=== PATIENT | female | born 1950 | race Caucasian/White ===

== ENCOUNTER 2017-04-18 16:23 | Inpatient (IN) | payer OTHER ==
[~2017-04-18] VITALS: Ht 152.4 cm; Wt 103.9 kg
[~2017-04-18 16:23] MED LIST: ACETAMINOPHEN-1 EAC1 PO; ADVAIR 100/501 DISK IH; ALBUTEROL SULF8.5 GM IH; ANTI-DIARRHEAL2 M2 PO; ASPIR 8181 M1 PO; Advair 100/50 Diskus IH; CALCIUM 500 +1 EACH PO; CALCIUM 600 +1 EAC2 PO; CEFPODOXIME PR200 MG PO; DYAZIDE, MA1 CAPSULE PO; ESCITALOPRAM OX10 MG PO; Ecotrin PO; FISH OIL 1,0001 EAC7 PO; FLONASE16 G1 BOTH NARES; FLUCONAZOLE100 MG PO; Flonase BOTH NARES; GAS X; GAS-X125 MG PO; GAS-X80 MG PO; Halfprin PO; IMODIUM A-1 MG/7.5 M PO; IMODIUM MS REL1 EACH PO; KLOR-CON 1010 ME1 PO; KLOR-CON M1010 MEQ PO; LEVAQUIN750 MG PO; LEVOTHYROXINE75 MCG PO; LEVOTHYROXINE88 MCG PO; Levothroid,Synthroid PO; Lomotil,Lonox PO; MOBIC15 MG PO; MULTIPLE VITAM1 EAC4 PO; MYCOSTATIN 100,60 ML PO; Mobic PO; Mycostatin PO; OSTEO BI-FLEX1 EAC3 PO; PROMETHAZINE HC25 M1 PO; Proventil,Ventolin H IH; Rocephin IV; SYNTHROID100 MCG PO; SYNTHROID88 MCG PO; TENORMIN50 MG PO; TOPAMAX100 MG PO; TOPAMAX50 MG PO; TOPIRAMATE100 MG PO; TOPIRAMATE50 MG PO; TYLENOL ARTHRI650 M2 PO; TYLENOL ARTHRI650 MG PO; Tenormin PO; ULTRAM50 MG PO; VITAMIN C1000 MG PO; WELLBUTRIN SR100 MG PO; WELLBUTRIN100 MG PO; Wellbutrin PO; XARELTO1 EACH PO; XARELTO15 MG PO; ZITHROMAX Z-PA250 MG PO; ZOFRAN8 MG PO; predniSONE PO
[2017-04-18 17:54] LABS: HEMATOCRIT 42.6 % (36.0-46.0); MCH 32.7 PG (29.0-34.0); MCHC 32.9 G/DL (30.0-36.0); MCV 99.5 FL (83-99); MEAN PLAT.VOLUME 9.7 uM^3 (9.5-12.4); PLATELET COUNT 207 K/uL (156-360); RBC DIS.WIDTH-CV 12.8 % (11.8-14.6); RBC DIS.WIDTH-SD 46.5 % (39-53); RED BLOOD COUNT 4.28 M/uL (3.80-5.20); WHITE BLOOD COUNT 20.8 K/uL (4.1-10.2)
[2017-04-18 18:25] LABS: CHLORIDE 105 mEq/L (99-109); POTASSIUM 4.5 mEq/L (3.7-5.4); SODIUM 138 mEq/L (136-147)
[2017-04-18 18:27] LABS: GLUCOSE 117 mg/dL (70-99)
[2017-04-18 18:28] LABS: ANION GAP 8 MEQ/L (2-14)
[2017-04-18 18:29] LABS: TOTAL BILIRUBIN 0.6 mg/dL (0.0-1.0)
[2017-04-18 18:31] LABS: ALKALINE PHOSPHATASE 73 IU/L (3-129); GFR ESTIMATE (CALCULATED) 34 mL/min/
[2017-04-18 18:32] LABS: UREA NITROGEN (BUN) 19 mg/dL (9-23)
[2017-04-18 19:00] LABS: ABS NEUTROPHIL COUNT 19.1; ANISOCYTOSIS 1+; BAND NEUTROPHILS 18.5 % (0-8.0); BASOPHILS 0.5 %; EOSINOPHIL ABS CT 0; INSTRUMENT ABS NEUTROPHIL CT 19.2 K/uL; LYMPHOCYTES 6.5 % (15.0-45.0); METAMYELOCYTES 0.5 %; PLAT.SUFFICIENCY ADEQUATE; SEG.NEUTROPHILS 73.5 % (46.0-76.0)
[2017-04-18] MEDS ORDERED: XARELTO20 MG PO (21:05)
[2017-04-18] MEDS ORDERED: RANITIDINE HCL150 MG PO (21:10)
[2017-04-18] MEDS ORDERED: VITAMIN D2000 UNI1 PO (21:10)
[2017-04-18] MEDS ORDERED: TYLENOL ARTHRI650 MG PO (21:10)
[2017-04-19 01:16] VITALS: BP 120/58
[2017-04-19 03:28] VITALS: BP 100/56
[2017-04-19 07:25] LABS: HEMATOCRIT 39.3 % (36.0-46.0); MCH 33.5 PG (29.0-34.0); MCHC 33.3 G/DL (30.0-36.0); MCV 100.5 FL (83-99); PLATELET COUNT 191 K/uL (156-360); RBC DIS.WIDTH-CV 13.1 % (11.8-14.6); RBC DIS.WIDTH-SD 48.4 % (39-53); RED BLOOD COUNT 3.91 M/uL (3.80-5.20); WHITE BLOOD COUNT 22.7 K/uL (4.1-10.2)
[2017-04-19 08:04] LABS: ANION GAP 12 MEQ/L (2-14); CHLORIDE 108 MEQ/L (99-109); GFR ESTIMATE (CALCULATED) 40 mL/min/; GLUCOSE 140 mg/dL (70-99); POTASSIUM 3.8 MEQ/L (3.7-5.4); SAMPLE HEMOLYSIS CHECK 0; SAMPLE ICTERIC CHECK 0; SAMPLE LIPEMIA CHECK 0; SODIUM 141 MEQ/L (136-147); UREA NITROGEN (BUN) 18 mg/dL (9-23)
[2017-04-19 11:40] VITALS: BP 92/55
[2017-04-19 18:20] VITALS: BP 117/60
[2017-04-19 19:59] VITALS: BP 112/62
[2017-04-19 23:44] VITALS: BP 114/56
[2017-04-20 03:19] VITALS: BP 120/60
[2017-04-20 08:19] VITALS: BP 96/52
[2017-04-20 15:27] VITALS: BP 109/55
[2017-04-20 19:58] VITALS: BP 109/64
[2017-04-20 23:24] VITALS: BP 120/56
[2017-04-21 03:20] VITALS: BP 118/61
[2017-04-21 07:40] LABS: HEMATOCRIT 32.2 % (36.0-46.0); MCH 32.3 PG (29.0-34.0); MCV 100.9 FL (83-99); MEAN PLAT.VOLUME 10.4 uM^3 (9.5-12.4); PLATELET COUNT 155 K/uL (156-360); RBC DIS.WIDTH-CV 13.2 % (11.8-14.6); RBC DIS.WIDTH-SD 49.1 % (39-53); RED BLOOD COUNT 3.19 M/uL (3.80-5.20); WHITE BLOOD COUNT 15.9 K/uL (4.1-10.2)
[2017-04-21 07:45] LABS: ALKALINE PHOSPHATASE 60 IU/L (3-129); ANION GAP 10 MEQ/L (2-14); CHLORIDE 105 MEQ/L (99-109); GFR ESTIMATE (CALCULATED) 48 mL/min/; POTASSIUM 3.7 MEQ/L (3.7-5.4); SAMPLE HEMOLYSIS CHECK 0; SAMPLE ICTERIC CHECK 0; SAMPLE LIPEMIA CHECK 0; SODIUM 137 MEQ/L (136-147); TOTAL BILIRUBIN 1.4 MG/DL (0.0-1.0); UREA NITROGEN (BUN) 14 mg/dL (9-23)
[2017-04-21 07:47] LABS: GLUCOSE 89 mg/dL (70-99)
[2017-04-21 08:06] VITALS: BP 111/57
[2017-04-21 11:49] VITALS: BP 103/59
[2017-04-21 15:56] VITALS: BP 104/63
[2017-04-21 20:16] LABS: C DIFF TOXIN NEGATIVE (NEGATIVE)
[2017-04-21 21:21] LABS: PROBE CHECK PASS; SPECIMEN PROCESSING CONTROL PASS
[2017-04-21 23:42] VITALS: BP 127/64
[2017-04-22 08:38] VITALS: BP 126/72
[2017-04-22 12:42] LABS: CHLORIDE 107 mEq/L (99-109); POTASSIUM 3.4 mEq/L (3.7-5.4); SODIUM 137 mEq/L (136-147)
[2017-04-22 12:45] LABS: GLUCOSE 104 mg/dL (70-99)
[2017-04-22 12:46] LABS: ANION GAP 8 MEQ/L (2-14)
[2017-04-22 12:48] LABS: ALKALINE PHOSPHATASE 62 IU/L (3-129); GFR ESTIMATE (CALCULATED) 48 mL/min/
[2017-04-22 12:49] LABS: HEMATOCRIT 34.4 % (36.0-46.0); MCH 32.4 PG (29.0-34.0); MCHC 33.1 G/DL (30.0-36.0); MCV 97.7 FL (83-99); MEAN PLAT.VOLUME 10.3 uM^3 (9.5-12.4); RED BLOOD COUNT 3.52 M/uL (3.80-5.20); UREA NITROGEN (BUN) 11 mg/dL (9-23); WHITE BLOOD COUNT 14.1 K/uL (4.1-10.2)
[2017-04-22 12:50] LABS: PLATELET COUNT 211 K/uL (156-360)
[2017-04-22 16:15] VITALS: BP 143/62
[2017-04-22 19:59] VITALS: BP 126/58
[2017-04-23 00:03] VITALS: BP 117/58
[2017-04-23 03:57] VITALS: BP 129/70
[2017-04-23 08:00] VITALS: BP 128/71
[2017-04-23 12:00] VITALS: BP 124/59
[2017-04-23 21:00] VITALS: BP 131/64
[2017-04-23 23:55] VITALS: BP 126/60
[2017-04-24 03:40] VITALS: BP 108/55
[2017-04-24 07:40] VITALS: BP 128/60
[2017-04-24 11:30] VITALS: BP 136/66
[2017-04-24 16:50] VITALS: BP 126/58
[2017-04-24 19:00] VITALS: BP 116/56
[2017-04-24 23:00] VITALS: BP 100/55
[2017-04-25 03:30] VITALS: BP 102/54
[2017-04-25 08:27] VITALS: BP 106/53
[2017-04-25 12:33] VITALS: BP 126/61
[2017-04-25 12:54] LABS: ALKALINE PHOSPHATASE 51 IU/L (3-129); ANION GAP 11 MEQ/L (2-14); CHLORIDE 112 MEQ/L (99-109); GFR ESTIMATE (CALCULATED) 59 mL/min/; GLUCOSE 83 mg/dL (70-99); MAGNESIUM 1.8 mg/dl (1.3-2.7); POTASSIUM 3.2 MEQ/L (3.7-5.4); SAMPLE HEMOLYSIS CHECK 0; SAMPLE ICTERIC CHECK 0; SAMPLE LIPEMIA CHECK 0; UREA NITROGEN (BUN) 14 mg/dL (9-23)
[2017-04-25 12:55] LABS: SODIUM 148 MEQ/L (136-147); TOTAL BILIRUBIN 0.6 MG/DL (0.0-1.0)
[2017-04-25 13:14] LABS: ABS NEUTROPHIL COUNT 11.7; ANISOCYTOSIS 1+; ATYPICAL LYMPHOCYTE 0.9 %; EOSINOPHIL ABS CT 0.2; EOSINOPHILS 1.8 % (0-5.0); HEMATOCRIT 29.4 % (36.0-46.0); INSTRUMENT ABS NEUTROPHIL CT 9.1 K/uL; LYMPHOCYTES 4.4 % (15.0-45.0); MACROCYTES 1+; MCH 32.9 PG (29.0-34.0); MCHC 32.3 G/DL (30.0-36.0); MEAN PLAT.VOLUME 10.3 uM^3 (9.5-12.4); MYELOCYTES 2.6 %; PLAT.SUFFICIENCY ADEQUATE; PLATELET COUNT 205 K/uL (156-360); RBC DIS.WIDTH-CV 13.8 % (11.8-14.6); RBC DIS.WIDTH-SD 51.5 % (39-53); RED BLOOD COUNT 2.89 M/uL (3.80-5.20); SEG.NEUTROPHILS 87.7 % (46.0-76.0); SMUDGE CELLS 9.6; WHITE BLOOD COUNT 13.3 K/uL (4.1-10.2)
[2017-04-25 13:25] LABS: MCV 101.7 FL (83-99)
[2017-04-25 15:24] VITALS: BP 128/69
[2017-04-25 20:00] VITALS: BP 140/78
[2017-04-25 23:55] VITALS: BP 109/56
[2017-04-26 04:00] VITALS: BP 110/52
[2017-04-26 08:16] VITALS: BP 117/60
[2017-04-26 10:34] LABS: HEMATOCRIT 29.4 % (36.0-46.0); MCH 32.5 PG (29.0-34.0); MCV 101.7 FL (83-99); PLATELET COUNT 213 K/uL (156-360); RBC DIS.WIDTH-CV 13.8 % (11.8-14.6); RBC DIS.WIDTH-SD 51.1 % (39-53); RED BLOOD COUNT 2.89 M/uL (3.80-5.20); WHITE BLOOD COUNT 13.4 K/uL (4.1-10.2)
[2017-04-26 10:57] LABS: ALKALINE PHOSPHATASE 49 IU/L (3-129); ANION GAP 7 MEQ/L (2-14); CHLORIDE 111 MEQ/L (99-109); GFR ESTIMATE (CALCULATED) 59 mL/min/; MAGNESIUM 1.7 mg/dl (1.3-2.7); POTASSIUM 3.1 MEQ/L (3.7-5.4); SAMPLE HEMOLYSIS CHECK 0; SAMPLE ICTERIC CHECK 0; SAMPLE LIPEMIA CHECK 0; SODIUM 149 MEQ/L (136-147); TOTAL BILIRUBIN 0.7 MG/DL (0.0-1.0); UREA NITROGEN (BUN) 9 mg/dL (9-23)
[2017-04-26 10:58] LABS: GLUCOSE 164 mg/dL (70-99)
[2017-04-26 11:38] LABS: ABS NEUTROPHIL COUNT 11.4; ANISOCYTOSIS 1+; BAND NEUTROPHILS 3.5 % (0-8.0); EOSINOPHIL ABS CT 0.5; EOSINOPHILS 3.5 % (0-5.0); INSTRUMENT ABS NEUTROPHIL CT 9.8 K/uL; LYMPHOCYTES 6.1 % (15.0-45.0); MACROCYTES 1+; MYELOCYTES 1.7 %; PLAT.SUFFICIENCY ADEQUATE; SEG.NEUTROPHILS 81.7 % (46.0-76.0)
[2017-04-26 11:54] VITALS: BP 115/60
[2017-04-26 16:58] VITALS: BP 134/60
[2017-04-26 20:45] VITALS: BP 135/64
[2017-04-27 00:38] VITALS: BP 100/53
[2017-04-27 04:41] VITALS: BP 128/57
[2017-04-27 06:33] LABS: EOSINOPHIL (%) 1.8 % (0-5); EOSINOPHIL COUNT 0.3 K/uL (0-0.3); HEMATOCRIT 28.6 % (36.0-46.0); IMMATURE GRANULOCYTE (%) 3.9 % (0.0-0.7); IMMATURE GRANULOCYTE COUNT 0.6 K/uL; INSTRUMENT ABS NEUTROPHIL CT 12.4 K/uL; LYMPHOCYTE COUNT 1.4 K/uL (1.0-2.8); MCH 33.1 PG (29.0-34.0); MCHC 32.9 G/DL (30.0-36.0); MCV 100.7 FL (83-99); MEAN PLAT.VOLUME 10.3 uM^3 (9.5-12.4); MONOCYTE (%) 5.3 % (3-12); MONOCYTE COUNT 0.8 K/uL (0-0.8); NEUTROPHIL (%) 79.8 % (45-76); NEUTROPHIL COUNT 12.4 K/uL (1.8-6.4); PLATELET COUNT 233 K/uL (156-360); RBC DIS.WIDTH-CV 13.8 % (11.8-14.6); RBC DIS.WIDTH-SD 50.6 % (39-53); RED BLOOD COUNT 2.84 M/uL (3.80-5.20); WHITE BLOOD COUNT 15.6 K/uL (4.1-10.2)
[2017-04-27 07:11] LABS: ALKALINE PHOSPHATASE 63 IU/L (3-129); ANION GAP 8 MEQ/L (2-14); CHLORIDE 108 MEQ/L (99-109); GFR ESTIMATE (CALCULATED) 59 mL/min/; GLUCOSE 138 mg/dL (70-99); MAGNESIUM 1.5 mg/dl (1.3-2.7); POTASSIUM 3.1 MEQ/L (3.7-5.4); SAMPLE HEMOLYSIS CHECK 0; SAMPLE ICTERIC CHECK 0; SAMPLE LIPEMIA CHECK 0; SODIUM 145 MEQ/L (136-147); TOTAL BILIRUBIN 0.7 MG/DL (0.0-1.0); UREA NITROGEN (BUN) 5 mg/dL (9-23)
[2017-04-27 08:00] VITALS: BP 134/63
[2017-04-27 12:00] VITALS: BP 138/66
[2017-04-27 15:36] VITALS: BP 145/68
[2017-04-27 20:14] VITALS: BP 140/58
[2017-04-28] VITALS: BP 139/64
[2017-04-28 09:17] VITALS: BP 122/59
[2017-04-28 10:51] LABS: MCH 31.8 PG (29.0-34.0); MCHC 31.6 G/DL (30.0-36.0); MCV 100.6 FL (83-99); PLATELET COUNT 261 K/uL (156-360); RBC DIS.WIDTH-CV 13.6 % (11.8-14.6); RBC DIS.WIDTH-SD 50.6 % (39-53); RED BLOOD COUNT 3.18 M/uL (3.80-5.20); WHITE BLOOD COUNT 21.2 K/uL (4.1-10.2)
[2017-04-28 11:08] LABS: ANION GAP 10 MEQ/L (2-14); CHLORIDE 106 MEQ/L (99-109); POTASSIUM 3.2 MEQ/L (3.7-5.4); SAMPLE HEMOLYSIS CHECK 0; SAMPLE ICTERIC CHECK 0; SAMPLE LIPEMIA CHECK 0; SODIUM 143 MEQ/L (136-147)
[2017-04-28 11:13] LABS: GFR ESTIMATE (CALCULATED) > 59 mL/min/; GLUCOSE 112 mg/dL (70-99); UREA NITROGEN (BUN) 4 mg/dL (9-23)
[2017-04-28 16:06] VITALS: BP 135/73
[2017-04-28 16:27] LABS: ADD MIUA? YES; BILIRUBIN NEGATIVE; BLOOD NEGATIVE; COLOR YELLOW ((YELLOW)); GLUCOSE (STRIP) NEGATIVE; KETONES NEGATIVE; LEUKOCYTES SMALL; NITRITE NEGATIVE; PROTEIN (STRIP) NEGATIVE; SPECIFIC GRAVITY 1.012 (1.000-1.030); UROBILINOGEN 0.2 MG/DL (0.2-1.0)
[2017-04-28 17:15] LABS: BACTERIA RARE /HPF; CALCIUM OXALATE CRYSTALS 4+ /HPF; EPITHELIAL CELLS RARE /HPF; MUCUS TRACE /LPF; UCUL ADDED? NO; WHITE BLOOD CELLS 15-20 /HPF (0-5)
[2017-04-28 19:39] VITALS: BP 172/70
[2017-04-28 21:37] VITALS: BP 154/71
[2017-04-29 00:13] VITALS: BP 158/62
[2017-04-29 03:42] VITALS: BP 159/68
[2017-04-29 06:59] LABS: HEMATOCRIT 30.7 % (36.0-46.0); MCH 32.7 PG (29.0-34.0); MCHC 32.2 G/DL (30.0-36.0); MCV 101.3 FL (83-99); MEAN PLAT.VOLUME 10.8 uM^3 (9.5-12.4); PLATELET COUNT 262 K/uL (156-360); RBC DIS.WIDTH-CV 13.7 % (11.8-14.6); RED BLOOD COUNT 3.03 M/uL (3.80-5.20); WHITE BLOOD COUNT 16.9 K/uL (4.1-10.2)
[2017-04-29 07:35] LABS: ALKALINE PHOSPHATASE 64 IU/L (3-129); ANION GAP 8 MEQ/L (2-14); CHLORIDE 104 MEQ/L (99-109); GFR ESTIMATE (CALCULATED) > 59 mL/min/; GLUCOSE 128 mg/dL (70-99); POTASSIUM 3.4 MEQ/L (3.7-5.4); SAMPLE HEMOLYSIS CHECK 0; SAMPLE ICTERIC CHECK 0; SAMPLE LIPEMIA CHECK 0; SODIUM 141 MEQ/L (136-147); TOTAL BILIRUBIN 0.4 MG/DL (0.0-1.0); UREA NITROGEN (BUN) 3 mg/dL (9-23)
[2017-04-29 08:00] VITALS: BP 181/76
[2017-04-29 16:00] VITALS: BP 147/63
[2017-04-29 23:20] VITALS: BP 134/59
[2017-04-30 06:56] LABS: HEMATOCRIT 30.4 % (36.0-46.0); MCH 32.2 PG (29.0-34.0); MCHC 32.2 G/DL (30.0-36.0); MEAN PLAT.VOLUME 11.3 uM^3 (9.5-12.4); PLATELET COUNT 307 K/uL (156-360); RBC DIS.WIDTH-CV 13.6 % (11.8-14.6); RBC DIS.WIDTH-SD 49.8 % (39-53); RED BLOOD COUNT 3.04 M/uL (3.80-5.20); WHITE BLOOD COUNT 17.3 K/uL (4.1-10.2)
[2017-04-30 07:21] LABS: ANION GAP 6 MEQ/L (2-14); CHLORIDE 106 MEQ/L (99-109); GFR ESTIMATE (CALCULATED) > 59 mL/min/; GLUCOSE 109 mg/dL (70-99); POTASSIUM 3.1 MEQ/L (3.7-5.4); SAMPLE HEMOLYSIS CHECK 0; SAMPLE ICTERIC CHECK 0; SAMPLE LIPEMIA CHECK 0; SODIUM 142 MEQ/L (136-147); UREA NITROGEN (BUN) 4 mg/dL (9-23)
[2017-04-30 07:30] VITALS: BP 117/52
[2017-04-30 11:23] VITALS: BP 148/66
[2017-04-30 16:47] VITALS: BP 164/70
[2017-04-30 19:50] VITALS: BP 138/64
[2017-04-30 23:15] VITALS: BP 120/58
[2017-05-01 04:00] VITALS: BP 124/58
[2017-05-01 07:47] VITALS: BP 137/65
[2017-05-01 12:25] LABS: HEMATOCRIT 30.6 % (36.0-46.0); MCH 32.4 PG (29.0-34.0); MCV 98.1 FL (83-99); RBC DIS.WIDTH-CV 13.7 % (11.8-14.6); RBC DIS.WIDTH-SD 48.3 % (39-53); RED BLOOD COUNT 3.12 M/uL (3.80-5.20); WHITE BLOOD COUNT 20.1 K/uL (4.1-10.2)
[2017-05-01 13:07] LABS: PLAT.SUFFICIENCY ADEQUATE; PLATELET CLUMPS PRESENT - PLATELET COUNT APPEARS ADQ.; PLATELET COUNT UNABLE TO REPORT K/uL (156-360)
[2017-05-01 13:41] LABS: ALKALINE PHOSPHATASE 65 IU/L (3-129); ANION GAP 8 MEQ/L (2-14); CHLORIDE 109 MEQ/L (99-109); GFR ESTIMATE (CALCULATED) 59 mL/min/; GLUCOSE 116 mg/dL (70-99); POTASSIUM 3.3 MEQ/L (3.7-5.4); SAMPLE HEMOLYSIS CHECK 0; SAMPLE ICTERIC CHECK 0; SAMPLE LIPEMIA CHECK 0; SODIUM 141 MEQ/L (136-147); TOTAL BILIRUBIN 0.4 MG/DL (0.0-1.0); UREA NITROGEN (BUN) 6 mg/dL (9-23)
[2017-05-01 15:26] VITALS: BP 136/77
[2017-05-01 23:48] VITALS: BP 129/62
[2017-05-02 06:49] LABS: HEMATOCRIT 30.3 % (36.0-46.0); MCH 32.4 PG (29.0-34.0); MCHC 32.7 G/DL (30.0-36.0); MEAN PLAT.VOLUME 10.6 uM^3 (9.5-12.4); RBC DIS.WIDTH-CV 14.1 % (11.8-14.6); RBC DIS.WIDTH-SD 50.9 % (39-53); RED BLOOD COUNT 3.06 M/uL (3.80-5.20); WHITE BLOOD COUNT 16.5 K/uL (4.1-10.2)
[2017-05-02 06:58] LABS: PLATELET COUNT 394 K/uL (156-360)
[2017-05-02 07:21] LABS: ALKALINE PHOSPHATASE 62 IU/L (3-129); ANION GAP 10 MEQ/L (2-14); CHLORIDE 106 MEQ/L (99-109); GFR ESTIMATE (CALCULATED) 53 mL/min/; GLUCOSE 94 mg/dL (70-99); SAMPLE HEMOLYSIS CHECK 0; SAMPLE ICTERIC CHECK 0; SAMPLE LIPEMIA CHECK 0; SODIUM 140 MEQ/L (136-147); TOTAL BILIRUBIN 0.4 MG/DL (0.0-1.0); UREA NITROGEN (BUN) 6 mg/dL (9-23)
[2017-05-02 08:05] VITALS: BP 147/67
[2017-05-02 16:00] VITALS: BP 137/65
[2017-05-02 23:35] VITALS: BP 117/58
[2017-05-03 06:39] LABS: HEMATOCRIT 28.8 % (36.0-46.0); MCH 32.2 PG (29.0-34.0); MCHC 32.3 G/DL (30.0-36.0); MCV 99.7 FL (83-99); MEAN PLAT.VOLUME 10.8 uM^3 (9.5-12.4); PLATELET COUNT 390 K/uL (156-360); RBC DIS.WIDTH-CV 14.2 % (11.8-14.6); RBC DIS.WIDTH-SD 51.1 % (39-53); RED BLOOD COUNT 2.89 M/uL (3.80-5.20); WHITE BLOOD COUNT 15.8 K/uL (4.1-10.2)
[2017-05-03 07:16] LABS: ANION GAP 9 MEQ/L (2-14); CHLORIDE 108 MEQ/L (99-109); GFR ESTIMATE (CALCULATED) 53 mL/min/; GLUCOSE 93 mg/dL (70-99); SAMPLE HEMOLYSIS CHECK 0; SAMPLE ICTERIC CHECK 0; SAMPLE LIPEMIA CHECK 0; SODIUM 138 MEQ/L (136-147); UREA NITROGEN (BUN) 5 mg/dL (9-23)
[2017-05-03 07:20] LABS: POTASSIUM 3.8 MEQ/L (3.7-5.4)
[2017-05-03 07:23] LABS: BASOPHIL COUNT 0.1 K/uL (0-0.1); EOSINOPHIL (%) 1.1 % (0-5); EOSINOPHIL COUNT 0.2 K/uL (0-0.3); IMMATURE GRANULOCYTE (%) 4.7 % (0.0-0.7); IMMATURE GRANULOCYTE COUNT 0.7 K/uL; LYMPHOCYTE COUNT 2.2 K/uL (1.0-2.8); MONOCYTE (%) 10.5 % (3-12); MONOCYTE COUNT 1.7 K/uL (0-0.8); NEUTROPHIL (%) 69.2 % (45-76)
[2017-05-03 08:00] VITALS: BP 141/66
[2017-05-03 15:35] VITALS: BP 130/61
[2017-05-03 23:16] VITALS: BP 134/82
[2017-05-04 08:23] VITALS: BP 139/82
[2017-05-04 10:44] LABS: ANION GAP 10 MEQ/L (2-14); CHLORIDE 107 MEQ/L (99-109); GFR ESTIMATE (CALCULATED) 59 mL/min/; GLUCOSE 99 mg/dL (70-99); POTASSIUM 3.8 MEQ/L (3.7-5.4); SAMPLE HEMOLYSIS CHECK 0; SAMPLE ICTERIC CHECK 0; SAMPLE LIPEMIA CHECK 0; SODIUM 137 MEQ/L (136-147); UREA NITROGEN (BUN) 4 mg/dL (9-23)
[2017-05-04 10:45] LABS: HEMATOCRIT 33.9 % (36.0-46.0); MCH 33.3 PG (29.0-34.0); MCHC 33.3 G/DL (30.0-36.0); PLATELET COUNT 485 K/uL (156-360); RBC DIS.WIDTH-CV 14.5 % (11.8-14.6); RBC DIS.WIDTH-SD 52.4 % (39-53); RED BLOOD COUNT 3.39 M/uL (3.80-5.20); WHITE BLOOD COUNT 15.9 K/uL (4.1-10.2)
[2017-05-04 16:28] VITALS: BP 146/72
[2017-05-04 23:54] VITALS: BP 142/63
[2017-05-05 07:50] VITALS: BP 150/70
[2017-05-05 09:19] LABS: HEMATOCRIT 32.5 % (36.0-46.0); MCH 32.1 PG (29.0-34.0); MCV 100.3 FL (83-99); MEAN PLAT.VOLUME 10.8 uM^3 (9.5-12.4); PLATELET COUNT 464 K/uL (156-360); RBC DIS.WIDTH-CV 14.3 % (11.8-14.6); RBC DIS.WIDTH-SD 52.2 % (39-53); RED BLOOD COUNT 3.24 M/uL (3.80-5.20)
[2017-05-05 09:36] LABS: ANION GAP 9 MEQ/L (2-14); CHLORIDE 106 MEQ/L (99-109); SAMPLE HEMOLYSIS CHECK 0; SAMPLE ICTERIC CHECK 0; SAMPLE LIPEMIA CHECK 0; SODIUM 134 MEQ/L (136-147)
[2017-05-05 09:42] LABS: GFR ESTIMATE (CALCULATED) 48 mL/min/; GLUCOSE 104 mg/dL (70-99); UREA NITROGEN (BUN) 6 mg/dL (9-23)
[2017-05-05 15:30] VITALS: BP 137/71
[2017-05-05 23:13] VITALS: BP 108/62
[2017-05-06 07:16] LABS: HEMATOCRIT 30.6 % (36.0-46.0); MCH 31.6 PG (29.0-34.0); MCHC 31.7 G/DL (30.0-36.0); MCV 99.7 FL (83-99); MEAN PLAT.VOLUME 10.5 uM^3 (9.5-12.4); PLATELET COUNT 407 K/uL (156-360); RBC DIS.WIDTH-CV 14.5 % (11.8-14.6); RBC DIS.WIDTH-SD 52.7 % (39-53); RED BLOOD COUNT 3.07 M/uL (3.80-5.20); WHITE BLOOD COUNT 11.4 K/uL (4.1-10.2)
[2017-05-06 07:40] VITALS: BP 134/65
[2017-05-06] MEDS ORDERED: TRAMADOL HCL50 MG PO (10:21)
[2017-05-06] MEDS ORDERED: PRILOSEC20 MG PO (12:26)
[2017-05-06] MEDS ORDERED: ZOFRAN ODT4 MG PO (12:26)
== END 2017-05-06 16:40 | disposition home health service (06) | DRG 330 ==
LOC: EME 16:23 → 4EAST 23:22 → EDOF 23:22 → 2EAST 23:22 → 4EAST 04-23 21:17 → 2EAST 04-26 19:25
PROVIDERS: Emergency Medicine; Physician Assistant Surgical; Surgery
DX: K43.3 Parastomal hernia with obstruction, without gangrene (principal); K56.5 Intestinal adhesions [bands] with obstruction (postinfection); K57.20 Diverticulitis of large intestine with perforation and abscess without bleeding; K29.70 Gastritis, unspecified, without bleeding; Q43.0 Meckel's diverticulum (displaced) (hypertrophic); D72.829 Elevated white blood cell count, unspecified; J45.909 Unspecified asthma, uncomplicated; J44.9 Chronic obstructive pulmonary disease, unspecified; I12.9 Hypertensive chronic kidney disease with stage 1 through stage 4 chronic kidney disease, or unspecified chronic kidney disease; N18.9 Chronic kidney disease, unspecified; F32.9 Major depressive disorder, single episode, unspecified; G43.909 Migraine, unspecified, not intractable, without status migrainosus; E66.9 Obesity, unspecified; Z68.41 Body mass index [BMI] 40.0-44.9, adult; Z93.2 Ileostomy status; Z87.891 Personal history of nicotine dependence; Z88.0 Allergy status to penicillin; Z88.2 Allergy status to sulfonamides; Z88.1 Allergy status to other antibiotic agents; Z86.711 Personal history of pulmonary embolism
CPT/HCPCS: 71010; 74176; 74177; 76937; 80048; 80053; 81003; 82948; 83735; 84100; 85025; 85027; 87040; 87493; 88307; 94010; 94640; 94640 76; 94660; 94799; 97530 GO; 97530 GP; 99202; 99281; 99285; C1753; C9113; J0131; J0330; J0744; J1100; J1170; J1644; J1650; J1956; J2250; J2270; J2405; J2543; J2710; J2765; J3010; J3480; J7030; J7040; J7120; Q0169; S0030

== ENCOUNTER 2017-09-01 23:39 | Observation (INO) | payer OTHER ==
[~2017-09-01] VITALS: Ht 152.4 cm; Wt 91.2 kg
[~2017-09-01 23:39] MED LIST changes: +PRILOSEC20 MG PO; +RANITIDINE HCL150 MG PO; +TRAMADOL HCL50 MG PO; +VITAMIN D2000 UNI1 PO; +XARELTO20 MG PO; +ZOFRAN ODT4 MG PO
[2017-09-02 00:49] LABS: BASOPHIL COUNT 0.1 K/uL (0-0.1); EOSINOPHIL (%) 2.2 % (0-5); EOSINOPHIL COUNT 0.3 K/uL (0-0.3); HEMATOCRIT 36.8 % (36.0-46.0); IMMATURE GRANULOCYTE (%) 0.5 % (0.0-0.7); IMMATURE GRANULOCYTE COUNT 0.1 K/uL; INSTRUMENT ABS NEUTROPHIL CT 10.5 K/uL; LYMPHOCYTE COUNT 1.1 K/uL (1.0-2.8); MCH 30.5 PG (29.0-34.0); MCHC 32.3 G/DL (30.0-36.0); MCV 94.4 FL (83-99); MEAN PLAT.VOLUME 11.4 uM^3 (9.5-12.4); MONOCYTE (%) 4.4 % (3-12); MONOCYTE COUNT 0.6 K/uL (0-0.8); NEUTROPHIL COUNT 10.5 K/uL (1.8-6.4); PLATELET COUNT 169 K/uL (156-360); RBC DIS.WIDTH-CV 14.7 % (11.8-14.6); RBC DIS.WIDTH-SD 50.6 % (39-53); WHITE BLOOD COUNT 12.5 K/uL (4.1-10.2)
[2017-09-02 01:02] LABS: CHLORIDE 112 mEq/L (99-109); POTASSIUM 3.4 mEq/L (3.7-5.4); SODIUM 141 mEq/L (136-147)
[2017-09-02 01:04] LABS: GLUCOSE 125 mg/dL (70-99)
[2017-09-02 01:05] LABS: ANION GAP 11 MEQ/L (2-14)
[2017-09-02 01:06] LABS: TOTAL BILIRUBIN 0.7 mg/dL (0.0-1.0)
[2017-09-02 01:07] LABS: ALKALINE PHOSPHATASE 148 IU/L (3-129)
[2017-09-02 01:08] LABS: GFR ESTIMATE (CALCULATED) 37 mL/min/
[2017-09-02 01:09] LABS: UREA NITROGEN (BUN) 17 mg/dL (9-23)
[2017-09-02 01:11] LABS: LIPASE 20 U/L (1.0-51.0)
[2017-09-02 01:14] LABS: TROP-I INTERPRETATION NEGATIVE; TROPONIN-I < 0.01 ng/mL (0.0-0.30)
[2017-09-02 06:41] LABS: TROP-I INTERPRETATION NEGATIVE; TROPONIN-I < 0.01 ng/mL (0.0-0.30)
[2017-09-02] MEDS ORDERED: ADVAIR 250/501 DISK IH (09:04)
[2017-09-02] MEDS ORDERED: COMPAZINE10 MG PO (09:23)
[2017-09-02] MEDS ORDERED: QUESTRAN PACKET4 GM PO (09:24)
[2017-09-02 10:29] LABS: HBSG INDEX 0.16; HPCA INDEX 0.16
[2017-09-02 10:30] LABS: ANTI-HEPATITIS B CORE (IGM) Nonreactive; HBC IgM INDEX 0.08; HEPATITIS B SURFACE ANTIBODY Nonreactive
[2017-09-02 13:16] LABS: TROP-I INTERPRETATION NEGATIVE; TROPONIN-I < 0.01 ng/mL (0.0-0.30)
[2017-09-02 14:13] VITALS: BP 142/66
[2017-09-02 14:29] LABS: C DIFF TOXIN NEGATIVE (NEGATIVE); PROBE CHECK PASS; SPECIMEN PROCESSING CONTROL PASS
[2017-09-02 16:35] VITALS: BP 137/74
[2017-09-02 20:20] LABS: BASOPHIL COUNT 0.1 K/uL (0-0.1); EOSINOPHIL (%) 5.1 % (0-5); EOSINOPHIL COUNT 0.4 K/uL (0-0.3); HEMATOCRIT 35.4 % (36.0-46.0); IMMATURE GRANULOCYTE (%) 0.4 % (0.0-0.7); INSTRUMENT ABS NEUTROPHIL CT 4.7 K/uL; LYMPHOCYTE COUNT 1.5 K/uL (1.0-2.8); MCHC 31.9 G/DL (30.0-36.0); MCV 97.3 FL (83-99); MEAN PLAT.VOLUME 11.3 uM^3 (9.5-12.4); MONOCYTE (%) 6.9 % (3-12); MONOCYTE COUNT 0.5 K/uL (0-0.8); NEUTROPHIL (%) 65.7 % (45-76); NEUTROPHIL COUNT 4.7 K/uL (1.8-6.4); PLATELET COUNT 156 K/uL (156-360); RBC DIS.WIDTH-CV 14.8 % (11.8-14.6); RBC DIS.WIDTH-SD 53.2 % (39-53); RED BLOOD COUNT 3.64 M/uL (3.80-5.20); WHITE BLOOD COUNT 7.1 K/uL (4.1-10.2)
[2017-09-02 20:27] LABS: CARBON DIOXIDE (BICARBONATE) 26.5 MEQ/L (20-31)
[2017-09-02 20:35] LABS: ANION GAP 6 MEQ/L (2-14); CHLORIDE 113 MEQ/L (99-109); MAGNESIUM 1.7 mg/dl (1.3-2.7); POTASSIUM 3.9 MEQ/L (3.7-5.4); SAMPLE HEMOLYSIS CHECK 0; SAMPLE ICTERIC CHECK 0; SAMPLE LIPEMIA CHECK 0; SODIUM 143 MEQ/L (136-147)
[2017-09-02 20:41] LABS: ALKALINE PHOSPHATASE 151 IU/L (3-129); GFR ESTIMATE (CALCULATED) 34 mL/min/; GLUCOSE 100 mg/dL (70-99); UREA NITROGEN (BUN) 15 mg/dL (9-23)
[2017-09-02 20:48] LABS: TOTAL BILIRUBIN 0.5 MG/DL (0.0-1.0)
[2017-09-03 00:30] VITALS: BP 118/62
[2017-09-03 03:29] VITALS: BP 120/72
[2017-09-03 04:47] LABS: EOSINOPHIL (%) 5.3 % (0-5); EOSINOPHIL COUNT 0.4 K/uL (0-0.3); HEMATOCRIT 34.3 % (36.0-46.0); IMMATURE GRANULOCYTE (%) 0.3 % (0.0-0.7); INSTRUMENT ABS NEUTROPHIL CT 3.8 K/uL; LYMPHOCYTE COUNT 2.1 K/uL (1.0-2.8); MCHC 32.4 G/DL (30.0-36.0); MCV 95.8 FL (83-99); MEAN PLAT.VOLUME 11.4 uM^3 (9.5-12.4); MONOCYTE (%) 7.3 % (3-12); MONOCYTE COUNT 0.5 K/uL (0-0.8); NEUTROPHIL (%) 55.3 % (45-76); NEUTROPHIL COUNT 3.8 K/uL (1.8-6.4); PLATELET COUNT 145 K/uL (156-360); RBC DIS.WIDTH-CV 14.7 % (11.8-14.6); RBC DIS.WIDTH-SD 51.7 % (39-53); RED BLOOD COUNT 3.58 M/uL (3.80-5.20); WHITE BLOOD COUNT 6.8 K/uL (4.1-10.2)
[2017-09-03 04:59] LABS: CHLORIDE 114 mEq/L (99-109); POTASSIUM 3.4 mEq/L (3.7-5.4); SODIUM 143 mEq/L (136-147)
[2017-09-03 05:01] LABS: GLUCOSE 88 mg/dL (70-99)
[2017-09-03 05:02] LABS: ALKALINE PHOSPHATASE 155 IU/L (3-129); ANION GAP 8 MEQ/L (2-14); CHLORIDE 113 mEq/L (99-109); POTASSIUM 3.5 mEq/L (3.7-5.4); SODIUM 143 mEq/L (136-147)
[2017-09-03 05:03] LABS: GLUCOSE 87 mg/dL (70-99)
[2017-09-03 05:04] LABS: ALKALINE PHOSPHATASE 150 IU/L (3-129)
[2017-09-03 05:05] LABS: ANION GAP 8 MEQ/L (2-14); DIRECT BILIRUBIN 0.2 mg/dL (0.0-0.3); GFR ESTIMATE (CALCULATED) 40 mL/min/
[2017-09-03 05:06] LABS: UREA NITROGEN (BUN) 15 mg/dL (9-23)
[2017-09-03 05:07] LABS: GFR ESTIMATE (CALCULATED) 44 mL/min/
[2017-09-03 05:08] LABS: UREA NITROGEN (BUN) 14 mg/dL (9-23)
[2017-09-03 05:12] LABS: TOTAL BILIRUBIN 0.4 mg/dL (0.0-1.0)
[2017-09-03 05:13] LABS: TOTAL BILIRUBIN 0.4 mg/dL (0.0-1.0)
[2017-09-03 10:43] VITALS: BP 146/67
[2017-09-03 16:09] VITALS: BP 145/65
== END 2017-09-03 19:31 | disposition home or self-care (01) ==
LOC: EME 23:39 → 5WEST 09-02 03:07 → EDOF 09-02 03:07 → ENRESERV 09-02 03:08 → 5WEST 09-02 13:38
PROVIDERS: Emergency Medicine; Hospitalist; Internal Medicine; Physician Assistant Medical
DX: R07.2 Precordial pain (principal); E87.6 Hypokalemia; Z86.711 Personal history of pulmonary embolism; D72.829 Elevated white blood cell count, unspecified; I12.9 Hypertensive chronic kidney disease with stage 1 through stage 4 chronic kidney disease, or unspecified chronic kidney disease; N18.3 Chronic kidney disease, stage 3 (moderate); R74.0 Nonspecific elevation of levels of transaminase and lactic acid dehydrogenase [LDH]; Z79.01 Long term (current) use of anticoagulants; K80.20 Calculus of gallbladder without cholecystitis without obstruction; Z93.2 Ileostomy status; R00.1 Bradycardia, unspecified; R53.83 Other fatigue; F31.9 Bipolar disorder, unspecified; F41.9 Anxiety disorder, unspecified; G89.4 Chronic pain syndrome; I34.0 Nonrheumatic mitral (valve) insufficiency; M19.90 Unspecified osteoarthritis, unspecified site; E66.9 Obesity, unspecified; Z68.39 Body mass index [BMI] 39.0-39.9, adult; K57.80 Diverticulitis of intestine, part unspecified, with perforation and abscess without bleeding; Z88.0 Allergy status to penicillin; E03.9 Hypothyroidism, unspecified; J45.909 Unspecified asthma, uncomplicated; Z87.891 Personal history of nicotine dependence
CPT/HCPCS: 71020; 76705; 78226; 80048; 80053; 80076; 82803; 83690; 83735; 84443; 84484; 85025; 85025 91; 85027; 85379; 86705; 86706; 86803; 87340; 87493; 93005; 93306; 94640; 99202; 99281; 99285; A9537; G0378; J0744; J2270; J2405; J7030

== ENCOUNTER 2017-12-18 01:27 | Emergency (ER) | payer OTHER ==
[~2017-12-18] VITALS: Ht 152.4 cm; Wt 79.3 kg
[~2017-12-18 01:27] MED LIST changes: +ADVAIR 250/501 DISK IH; +COMPAZINE10 MG PO; +QUESTRAN PACKET4 GM PO
[2017-12-18 02:07] LABS: HEMATOCRIT 38.3 % (36.0-46.0); HEMOGLOBIN 12.5 G/DL (11.9-15.5); MCH 32.2 PG (29.0-34.0); MCHC 32.6 G/DL (30.0-36.0); MCV 98.7 FL (83-99); PLATELET COUNT 165 K/uL (156-360); RBC DIS.WIDTH-CV 13.4 % (11.8-14.6); RBC DIS.WIDTH-SD 48.3 % (39-53); RED BLOOD COUNT 3.88 M/uL (3.80-5.20); WHITE BLOOD COUNT 11.1 K/uL (4.1-10.2)
[2017-12-18 02:25] LABS: D-DIMER ELISA < 150.00 ng/mLDDU (<230)
[2017-12-18 02:36] LABS: ALBUMIN 4.3 g/dL (3.2-4.8); CHLORIDE 112 mEq/L (99-109); POTASSIUM 4.4 mEq/L (3.7-5.4); SODIUM 142 mEq/L (136-147)
[2017-12-18 02:38] LABS: GLUCOSE 133 mg/dL (70-99); TOTAL PROTEIN 7.1 g/dL (6.4-8.3)
[2017-12-18 02:40] LABS: TOTAL BILIRUBIN 0.7 mg/dL (0.0-1.0)
[2017-12-18 02:42] LABS: ALKALINE PHOSPHATASE 152 IU/L (3-129); CREATININE 1.6 mg/dL (0.6-1.3); GFR ESTIMATE (CALCULATED) 34 mL/min/
[2017-12-18 02:43] LABS: UREA NITROGEN (BUN) 14 mg/dL (9-23)
[2017-12-18 02:44] LABS: AST (GOT) 77 IU/L (2-34)
[2017-12-18 02:45] LABS: ALT (GPT) 39 IU/L (3-49); LIPASE 27 U/L (1.0-51.0)
[2017-12-18 02:54] LABS: TROP-I INTERPRETATION NEGATIVE; TROPONIN-I < 0.01 ng/mL (0.0-0.30)
[2017-12-18] MEDS ORDERED: OMEPRAZOLE20 M2 PO (03:47)
[2017-12-18 06:00] LABS: TROP-I INTERPRETATION NEGATIVE; TROPONIN-I < 0.01 ng/mL (0.0-0.30)
[2017-12-18 06:47] VITALS: BP 124/71
== END 2017-12-18 06:49 | disposition home or self-care (01) ==
LOC: EME 01:27
PROVIDERS: Emergency Medicine
DX: R07.89 Other chest pain (principal); K80.20 Calculus of gallbladder without cholecystitis without obstruction; R00.1 Bradycardia, unspecified; I12.9 Hypertensive chronic kidney disease with stage 1 through stage 4 chronic kidney disease, or unspecified chronic kidney disease; N18.9 Chronic kidney disease, unspecified; K21.9 Gastro-esophageal reflux disease without esophagitis; J45.909 Unspecified asthma, uncomplicated; E03.9 Hypothyroidism, unspecified; M19.90 Unspecified osteoarthritis, unspecified site; F41.9 Anxiety disorder, unspecified; F32.9 Major depressive disorder, single episode, unspecified; Z87.891 Personal history of nicotine dependence; Z79.82 Long term (current) use of aspirin; Z87.19 Personal history of other diseases of the digestive system; Z86.711 Personal history of pulmonary embolism; Z88.2 Allergy status to sulfonamides; Z88.0 Allergy status to penicillin; Z88.8 Allergy status to other drugs, medicaments and biological substances
CPT/HCPCS: 71046; 76705; 80053; 83690; 84484; 85027; 85379; 93005; 99281; 99285; J3010; J7030

== ENCOUNTER 2018-03-03 11:09 | Emergency (ER) | payer OTHER ==
[~2018-03-03] VITALS: Ht 152.4 cm; Wt 74.0 kg
[~2018-03-03 11:09] MED LIST changes: +OMEPRAZOLE20 M2 PO
[2018-03-03 12:08] LABS: BASOPHIL (%) 0.3 % (0-1); EOSINOPHIL (%) 0.1 % (0-5); HEMATOCRIT 39.7 % (36.0-46.0); IMMATURE GRANULOCYTE (%) 0.4 % (0.0-0.7); LYMPHOCYTE (%) 6.2 % (15-42); LYMPHOCYTE COUNT 0.6 K/uL (1.0-2.8); MCH 32.7 PG (29.0-34.0); MCHC 32.7 G/DL (30.0-36.0); MCV 99.7 FL (83-99); MONOCYTE (%) 3.1 % (3-12); MONOCYTE COUNT 0.3 K/uL (0-0.8); NEUTROPHIL (%) 89.9 % (45-76); NEUTROPHIL COUNT 8.2 K/uL (1.8-6.4); PLATELET COUNT 163 K/uL (156-360); RBC DIS.WIDTH-CV 13.7 % (11.8-14.6); RBC DIS.WIDTH-SD 50.6 % (39-53); RED BLOOD COUNT 3.98 M/uL (3.80-5.20); WHITE BLOOD COUNT 9.2 K/uL (4.1-10.2)
[2018-03-03 12:16] LABS: ALBUMIN 4.2 g/dL (3.2-4.8)
[2018-03-03 12:17] LABS: CHLORIDE 107 mEq/L (99-109); SODIUM 141 mEq/L (136-147)
[2018-03-03 12:19] LABS: GLUCOSE 142 mg/dL (70-99)
[2018-03-03 12:21] LABS: TOTAL BILIRUBIN 0.5 mg/dL (0.0-1.0)
[2018-03-03 12:22] LABS: ALKALINE PHOSPHATASE 104 IU/L (3-129)
[2018-03-03 12:23] LABS: CREATININE 1.4 mg/dL (0.6-1.3); GFR ESTIMATE (CALCULATED) 40 mL/min/
[2018-03-03 12:24] LABS: AST (GOT) 39 IU/L (2-34); UREA NITROGEN (BUN) 17 mg/dL (9-23)
[2018-03-03 12:26] LABS: ALT (GPT) 18 IU/L (3-49); LIPASE 18 U/L (1.0-51.0)
[2018-03-03 12:29] LABS: TROP-I INTERPRETATION NEGATIVE; TROPONIN-I < 0.01 ng/mL (0.0-0.30)
[2018-03-03] MEDS ORDERED: PERCOCET 5/31 TABLET PO (16:35)
[2018-03-03 16:36] LABS: APPEARANCE SL.HAZY ((CLEAR)); BILIRUBIN NEGATIVE; BLOOD NEGATIVE; COLOR YELLOW ((YELLOW)); GLUCOSE (STRIP) NEGATIVE; KETONES NEGATIVE; LEUKOCYTES NEGATIVE; NITRITE NEGATIVE; PROTEIN (STRIP) NEGATIVE; SPECIFIC GRAVITY 1.009 (1.000-1.030); UROBILINOGEN 0.2 MG/DL (0.2-1.0)
[2018-03-03 16:50] LABS: BACTERIA RARE /HPF; EPITHELIAL CELLS RARE /HPF; MUCUS TRACE /LPF; RED BLOOD CELLS 0-5 /HPF (0-5); UCUL ADDED? NO; WHITE BLOOD CELLS 0-5 /HPF (0-5)
[2018-03-03 17:05] LABS: TROP-I INTERPRETATION NEGATIVE; TROPONIN-I < 0.01 ng/mL (0.0-0.30)
[2018-03-03 17:38] VITALS: BP 145/67
== END 2018-03-03 17:38 | disposition home or self-care (01) ==
LOC: EME 11:09
PROVIDERS: Emergency Medicine
DX: K80.20 Calculus of gallbladder without cholecystitis without obstruction (principal); Z93.3 Colostomy status; E03.9 Hypothyroidism, unspecified; I12.9 Hypertensive chronic kidney disease with stage 1 through stage 4 chronic kidney disease, or unspecified chronic kidney disease; N18.9 Chronic kidney disease, unspecified; F32.9 Major depressive disorder, single episode, unspecified; F41.9 Anxiety disorder, unspecified; J45.909 Unspecified asthma, uncomplicated; K21.9 Gastro-esophageal reflux disease without esophagitis; Z88.2 Allergy status to sulfonamides; Z88.0 Allergy status to penicillin; Z87.891 Personal history of nicotine dependence
CPT/HCPCS: 76705; 80053; 81003; 83605; 83690; 84484; 85025; 93005; 99281; 99285